=== PATIENT | female | born 1965 | race American Indian/Alaskan Native ===

== ENCOUNTER → 2018-01-22 15:33 | Outpatient (CLI) | payer MEDICAID, OTHER, SELFPAY ==
--- NOTE | 2018-01-22 15:46 | DI.RAD.S_ITS ---
PROCEDURE: XR FOOT LT MIN 3V INDICATIONS: PERSISTENT LEFT FOOT PAIN TECHNIQUE: 3 views of the foot were acquired. COMPARISON: None. FINDINGS: Bones: No fractures or dislocations. No suspicious bony lesions. Mild first MTP joint degeneration. There is first metatarsal osseous bunion. Plantar calcaneal spurring Soft tissues: No tibiotalar joint effusion. Achilles tendon appears normal. IMPRESSION: First MTP joint degeneration, with possible osseous bunion. Consider weight bearing radiographs to better assess for hallux valgus. Plantar calcaneal spur. Dictated by: Darian Hahn M.D. on 01/22/2018 at 16:09 Approved by: Darian Hahn M.D. on 01/22/2018 at 16:12
== END ==
PROVIDERS: Visit Provider Family Medicine
DX: M79.672 Pain in left foot (principal); M19.072 Primary osteoarthritis, left ankle and foot; M77.32 Calcaneal spur, left foot
CPT/HCPCS: 73630